=== PATIENT | male | born 1970 ===

== ENCOUNTER 2017-02-22 15:57 | Emergency (ER) | payer SELFPAY ==
--- NOTE | 2017-02-22 17:04 | RAD ---
PROCEDURE: Cervical Spine Radiographs. HISTORY: Pain. COMPARISON: None. FINDINGS: BONES: Alignment maintained. No fracture. Dens Intact. Prominent anterior spondylosis -C3-C4 and a 5 most notable DISC SPACES: Disc space narrowing posteriorly C3-4 C4-5 and C5-6 SOFT TISSUES: Normal. No prevertebral soft tissue swelling. OTHER FINDINGS: None. IMPRESSION: Cervical spondylosis. Comments there is limited visualization of the posterior elements of C7 this non trauma case. With re- when doing - digital technique no gross pathology here appreciated. If clinically indicated consider additional swimmer's view to better assess this area
--- NOTE | 2017-02-22 17:43 | CT ---
PROCEDURE: CT HEAD WITHOUT CONTRAST. HISTORY: trauma COMPARISON: Noncontrast head CT performed 05/27/16 TECHNIQUE: Axial computed tomography images were obtained through the head/brain without intravenous contrast. Radiation dose: Total exam DLP = 982.82 mGy-cm. This CT exam was performed using one or more of the following dose reduction techniques: Automated exposure control, adjustment of the mA and/or kV according to patient size, and/or use of iterative reconstruction technique. FINDINGS: HEMORRHAGE: No intracranial hemorrhage. BRAIN: No mass effect or edema. The sam-white matter differentiation appears intact. If there is persistent neurologic deficit, an MRI is a more sensitive exam in the setting of acute ischemia. VENTRICLES: No hydrocephalus. CALVARIUM: Unremarkable. PARANASAL SINUSES: Unremarkable as visualized. No significant inflammatory changes. MASTOID AIR CELLS: Unremarkable as visualized. No inflammatory changes. OTHER FINDINGS: None. IMPRESSION: No acute intracranial pathology identified.
--- NOTE | 2017-02-22 17:55 | C.PDOC ---
History Of Present Illness 46yo male, presents to ED for evaluation after he sustained a fall 3 days ago. Patient states 3 days ago, while going down the stairs he fell backwards and hit the back of his scalp on a cement surface. States he had an abrasion to his occipital scalp but denies any loss of consciousness. Since then, the patient has had mild intermittent headache, which has been improving but is still present. He states he is concerned because he had an episode of vomiting today after taking Naproxen which he has been taking for neck pain. He also reports multiple episodes of diarrhea; denies any abdominal pain, fever, other injuries. No other medical complaints. - HPI Time Seen by Provider: 02/22/17 16:11 Chief Complaint (Nursing): Trauma History Per: Patient History/Exam Limitations: no limitations Onset/Duration Of Symptoms: Days (3), Waxing/Waning Injury Occurred (Timing): Days Ago: (3) Past Medical History Reviewed: Historical Data, Nursing Documentation, Vital Signs Vital Signs: Last Vital Signs Temp 99.0 F 02/22/17 18:11 Pulse 97 H 02/22/17 18:11 Resp 20 02/22/17 18:11 BP 118/75 02/22/17 18:11 Pulse Ox 99 02/22/17 19:09 - Medical History PMH: No Chronic Diseases Surgical History: No Surg Hx Family History: States: No Known Family Hx, Unknown Family Hx - Social History Hx Alcohol Use: Yes Hx Substance Use: No - Immunization History Hx Tetanus Toxoid Vaccination: No Hx Influenza Vaccination: No Hx Pneumococcal Vaccination: No Review Of Systems Except As Marked, All Systems Reviewed And Found Negative. Constitutional: Negative for: Fever, Chills, Weakness Cardiovascular: Negative for: Chest Pain, Palpitations, Edema Respiratory: Negative for: Cough, Shortness of Breath, Wheezing Gastrointestinal: Positive for: Vomiting, Diarrhea. Negative for: Nausea, Abdominal Pain Musculoskeletal: Positive for: Neck Pain. Negative for: Shoulder Pain, Back Pain Skin: Negative for: Rash, Lesions, Jaundice Neurological: Positive for: Headache (mild, intermittent). Negative for: Weakness, Confusion, Altered Mental Status, Dizziness, Other (loss of consciousness) Physical Exam - Physical Exam Appears: Well, Non-toxic, No Acute Distress Skin: Normal Color, Warm, Dry, No Rash Head: Normacephalic, Abrasion (healing abrasion to occipital scalp) Eye(s): bilateral: Normal Inspection, PERRL, EOMI Ear(s): Bilateral: Normal Oral Mucosa: Moist Neck: Normal ROM, No Midline Cervical Tenderness, Paracervical Tenderness, Supple Cardiovascular: Rhythm Regular, No Murmur Respiratory: Normal Breath Sounds, No Rales, No Rhonchi, No Wheezing Gastrointestinal/Abdominal: Normal Exam, Soft, No Tenderness Back: Normal Inspection, No CVA Tenderness, No Vertebral Tenderness Extremity: Normal ROM, No Tenderness, Capillary Refill (normal), No Deformity, No Swelling Neurological/Psych: Oriented x3, Normal Speech, Normal Cognition, Normal Cranial Nerves, Normal Motor, Normal Sensation ED Course And Treatment O2 Sat by Pulse Oximetry: 99 (RA) Pulse Ox Interpretation: Normal - Other Rad XR C-Spine X-Ray: Viewed By Me, Read By Radiologist Interpretation: Cervical spondylosis. - CT Scan/US CT Head Other Rad Studies (CT/US): Read By Radiologist, Radiology Report Reviewed CT/US Interpretation: No acute intracranial pathology identified. Progress Note: On re-evaluation, patient remains awake, alert and oriented x3 in no acute distress with a normal neuro exam, ambulating with a normal gait. Disposition Counseled Patient/Family Regarding: Studies Performed (CT head and cervical spine shows no acute abnormality. ), Diagnosis (Dx of head injury and gastroenteritis d/w the patient, as the likely cause of the patient's episode of vomiting and diarrhea was d/w the patient. ), Need For Followup, Rx Given - Disposition Referrals: [facility] [Outside] Disposition: HOME/ ROUTINE Disposition Time: 17:53 Condition: STABLE Additional Instructions: Follow up with the clinic in 2 days without fail for further evaluation. Take medication as prescribed. Return to the ER at any time for any new or worsening symptoms. Prescriptions: Ondansetron ODT [Zofran ODT] 4 mg PO DAILY PRN #20 odt PRN Reason: Nausea/Vomiting Instructions: Head Injury (ED), Gastroenteritis (ED) Forms: [facility] (Italian), Work Excuse Print Language: ARMENIAN - Clinical Impression Clinical Impression: Head injury, Diarrhea, Vomiting - PA / LIBRARY INFORMATION TECHNICIAN / Resident Statement MD/DO has reviewed & agrees with the documentation as recorded. - Scribe Statement The provider has reviewed the documentation as recorded by the Claude Elizabeth provider Attestation: All medical record entries made by the Alainaibcecil were at my direction and personally dictated by me. I have reviewed the chart and agree that the record accurately reflects my personal performance of the history, physical exam, medical decision making, and the department course for this patient. I have also personally directed, reviewed, and agree with the discharge instructions and disposition.
[2017-02-22 18:12] VITALS: BP 118/75; PULSE 97; RESP 20; TEMP 99
[2017-02-22 19:00] VITALS: O2SAT 99
== END 2017-02-22 18:30 | disposition home or self-care (01) ==
LOC: C.ER 15:57
DX: S00.01XA Abrasion of scalp, initial encounter (principal); W10.9XXA Fall (on) (from) unspecified stairs and steps, initial encounter; R19.7 Diarrhea, unspecified; R11.10 Vomiting, unspecified